=== PATIENT | male | born 1970 | race Caucasian/White ===

== ENCOUNTER → 2017-11-18 | Outpatient (CLI) | payer OTHER ==
[~2017-11-18] MED LIST: CYCLOBENZAPRINE5 M3 PO; HYDROCHLOROTH12.5 M2 PO; HYDROCODONE BIT1 T11 PO; LISINOPRIL20 MG PO; MEDROL DOSEPAK4 MG PO; Motrin,Rufen800 MG PO; NAPROSYN500 MG PO; OMEPRAZOLE20 M2 PO; ROBAXIN500 M1 PO; ZANTAC 150150 MG PO; ZANTAC150 MG PO; ZITHROMAX250 MG PO
== END | disposition home or self-care (01) ==
LOC: RAD 07:24
DX: R06.02 Shortness of breath (principal); R07.89 Other chest pain; F17.200 Nicotine dependence, unspecified, uncomplicated

== ENCOUNTER → 2017-12-15 | Outpatient (CLI) | payer OTHER ==
--- NOTE | ~2017-12-15 | PF ---
[place], [place] PULMONARY FUNCTION TEST NAME: DEL[facility]AGA [id number] UNIT #: [id number] ROOM: DOCTOR: NGHIA KHAN MD,MIRACLE BIRTHDATE: [birth year] DOS: 12/15/2017 The testing was ordered by Maryann Wallace, nurse practitioner. HISTORY: The patient is a 47-year-old male, height of 71 inches, weight of 174 pounds, BMI of 24.3. Reported symptoms of shortness of breath. The patient was also noted with symptoms of nonproductive cough, rare wheezing. Chronic tobacco use noted. Two packs of cigarettes per day for 30 years. SPIROMETRY: The FVC was recorded as 3.49 liters, 66% predicted value, moderately decreased, FEV1 of 2.12 liters, 51% predicted value, moderate to severely decreased. An 18% partial improvement occurred postbronchodilator FEV1, which we will consider clinical significant improvement. Postbronchodilator FEV1/FVC ratio recorded at 66%. Flow volume loop was noted. Finding suggestive of obstructive lung disease with partial reversibility. The lung volume, thoracic gas volume recorded as 114%, residual volume 187%, total lung capacity 97%. RV/TLC ratio 190%. Lung volume suggestive of moderate air trapping secondary to obstructive lung disease. The patient is resistant and passive conductance noted significantly abnormal, partial improvement post-bronchodilator test. Lung diffusion recorded mildly decreased at 70% without correction of carbon monoxide hemoglobin values. FINAL IMPRESSION: Current test was noted with finding consistent with moderate bronchial asthma as well as COPD. Clinical correlation would be advised. MIRACLE AGRAWAL MD CM:PFREPORT:PULMONARY FUNCTION TEST [id number] MIRACLE KHAN MD
== END | disposition home or self-care (01) ==
LOC: CP 08:07
DX: J44.9 Chronic obstructive pulmonary disease, unspecified (principal); R06.02 Shortness of breath; Z72.0 Tobacco use

== ENCOUNTER 2017-12-16 11:02 | Emergency (ER) | payer OTHER ==
[~2017-12-16] VITALS: Ht 180.3 cm; Wt 78.9 kg
[~2017-12-16 11:02] MED LIST changes: -HYDROCHLOROTH12.5 M2 PO; -LISINOPRIL20 MG PO; -NAPROSYN500 MG PO; -OMEPRAZOLE20 M2 PO; -ROBAXIN500 M1 PO; -ZANTAC 150150 MG PO; -ZITHROMAX250 MG PO
[2017-12-16] MEDS ORDERED: NAPROSYN500 MG PO (12:49)
[2017-12-16] MEDS ORDERED: ROBAXIN500 M1 PO (12:49)
[2017-12-16] MEDS ORDERED: MEDROL DOSEPAK4 MG PO (12:49)
== END 2017-12-16 12:53 | disposition home or self-care (01) ==
LOC: ED 11:02
DX: S39.012A Strain of muscle, fascia and tendon of lower back, initial encounter (principal); M79.605 Pain in left leg; F17.200 Nicotine dependence, unspecified, uncomplicated; X50.0XXA Overexertion from strenuous movement or load, initial encounter; Y93.89 Activity, other specified; Y92.69 Other specified industrial and construction area as the place of occurrence of the external cause; Y99.8 Other external cause status

== ENCOUNTER → 2018-01-05 | Outpatient (CLI) | payer OTHER ==
[~2018-01-05] MED LIST changes: +HYDROCHLOROTH12.5 M2 PO; +LISINOPRIL20 MG PO; +NAPROSYN500 MG PO; +OMEPRAZOLE20 M2 PO; +ROBAXIN500 M1 PO; +ZANTAC 150150 MG PO; +ZITHROMAX250 MG PO
== END | disposition home or self-care (01) ==
LOC: MRI 07:41
DX: M48.07 Spinal stenosis, lumbosacral region (principal); S33.5XXD Sprain of ligaments of lumbar spine, subsequent encounter; X58.XXXD Exposure to other specified factors, subsequent encounter

== ENCOUNTER 2018-01-08 10:54 | Emergency (ER) | payer OTHER ==
[~2018-01-08] VITALS: Ht 180.3 cm; Wt 80.3 kg
--- NOTE | ~2018-01-08 | EKG ---
[place], [place] ELECTROCARDIOGRAM REPORT NAME: DELVIN BRAGA III UNIT #: [id number] ROOM: DOCTOR: MANUEL DRAFT REPORT BIRTHDATE: [birth year] [facility] Test Date: 2018-01-08 Test Time: 11:23:00 Pat Name: DELVIN BRAGA Department: Room: Gender: [employer] Worker: : 1970 Requested By: KB GUIDO PA-C Order Number: [id number] Reading MD: Measurements Intervals [place] Rate: 103 P: 66 SD: 168 QRS: 19 QRSD: 81 T: 50 QT: 317 QTc: 415 Interpretive Statements Sinus tachycardia No previous ECG available for comparison CM:EKGRPT:ELECTROCARDIOGRAM REPORT [id number] KB JACKSON DRAFT REPORT KB GUIDO PA-C
[~2018-01-08 10:54] MED LIST changes: -HYDROCHLOROTH12.5 M2 PO; -LISINOPRIL20 MG PO; -OMEPRAZOLE20 M2 PO; -ZANTAC 150150 MG PO; -ZITHROMAX250 MG PO
[2018-01-08 11:31] LABS: BASO % 0.2 % (0.0-1.0); EOS # 0.1 10*3/uL (0.0-0.4); EOS % 1.2 % (1.0-4.0); HEMATOCRIT 37.5 % (42.0-52.0); HEMOGLOBIN 12.8 g/dl (14.0-18.0); LYMPH # 1.4 10*3/uL (1.3-4.4); LYMPH % 12.5 % (27.0-41.0); MEAN CELL VOLUME 92.4 fl (80.0-94.0); MEAN CORPUSCULAR HGB 31.5 pg (27.0-31.0); MEAN CORPUSCULAR HGB CONC 34.1 g/dl (33.0-37.0); MEAN PLATELET VOLUME 8.7 fl (9.6-12.3); MONO % 8.8 % (3.0-9.0); NEUT # 8.3 10*3/uL (2.3-7.9); NEUT % 76.8 % (47.0-73.0); PLATELET COUNT AUTOMATED 255 10*3/uL (130-400); RED BLOOD COUNT 4.06 10*6/uL (4.50-5.90); RED CELL DISTRI WIDTH 13.2 % (0-14.5); WHITE BLOOD COUNT 10.8 10*3/uL (4.8-10.8)
[2018-01-08 11:41] LABS: INTERNATIONAL NORM RATIO 0.9 (2.0-3.5)
[2018-01-08 11:47] LABS: ALBUMIN 3.8 gm/dl (3.1-4.5); ALKALINE PHOSPHATASE 88 U/L (45-117); BUN 15 mg/dl (7-24); CHLORIDE 97 mmol/L (98-107); POTASSIUM 3.6 mmol/L (3.5-5.1); SGOT/AST 22 IU/L (3-35); SGPT/ALT 53 U/L (12-78); SODIUM 131 mmol/L (136-145); TOTAL PROTEIN 7.1 gm/dL (6.4-8.2)
[2018-01-08 11:51] LABS: TROPONIN I < 0.015 ng/ml (<0.045)
[2018-01-08] MEDS ORDERED: HYDROCHLOROTH12.5 M2 PO (11:53)
[2018-01-08] MEDS ORDERED: LISINOPRIL20 MG PO (11:53)
[2018-01-08] MEDS ORDERED: OMEPRAZOLE20 M2 PO (15:38)
[2018-01-08] MEDS ORDERED: ZANTAC 150150 MG PO (15:38)
[2018-01-08] MEDS ORDERED: ZITHROMAX250 MG PO (15:38)
== END 2018-01-08 15:41 | disposition home or self-care (01) ==
LOC: ED 10:54
PROVIDERS: Physician Assistant
DX: J98.9 Respiratory disorder, unspecified (principal); K21.9 Gastro-esophageal reflux disease without esophagitis; R79.1 Abnormal coagulation profile; Z79.899 Other long term (current) drug therapy

== ENCOUNTER → 2020-03-14 | Outpatient (CLI) | payer OTHER ==
[~2020-03-14] MED LIST changes: +HYDROCHLOROTH12.5 M2 PO; +LISINOPRIL20 MG PO; +OMEPRAZOLE20 M2 PO; +ZANTAC 150150 MG PO; +ZITHROMAX250 MG PO
== END | disposition home or self-care (01) ==
LOC: RAD 07:53
PROVIDERS: ATTEND Nurse Practitioner Family
DX: K57.90 Diverticulosis of intestine, part unspecified, without perforation or abscess without bleeding (principal); R14.0 Abdominal distension (gaseous)

== ENCOUNTER → 2020-05-08 | Outpatient (CLI) | payer OTHER ==
[2020-05-08 07:36] LABS: BASO % 0.5 % (0.0-1.0); EOS # 0.1 10*3/uL (0.0-0.4); EOS % 1.5 % (1.0-4.0); HEMATOCRIT 45.3 % (42.0-52.0); LYMPH # 1.4 10*3/uL (1.3-4.4); LYMPH % 21.5 % (27.0-41.0); MEAN CELL VOLUME 91.3 fl (80.0-94.0); MEAN CORPUSCULAR HGB 30.2 pg (27.0-31.0); MEAN CORPUSCULAR HGB CONC 33.1 g/dl (33.0-37.0); MONO # 0.5 10*3/uL (0.1-1.0); MONO % 7.5 % (3.0-9.0); NEUT # 4.5 10*3/uL (2.3-7.9); NEUT % 68.7 % (47.0-73.0); PLATELET COUNT AUTOMATED 285 10*3/uL (130-400); RED BLOOD COUNT 4.96 10*6/uL (4.50-5.90); RED CELL DISTRI WIDTH 12.8 % (0-14.5); WHITE BLOOD COUNT 6.5 10*3/uL (4.8-10.8)
[2020-05-08 08:06] LABS: CHOLESTEROL 181 mg/dL (<200); HDL CHOLESTEROL 54 mg/dl (40-60); LDL CHOLESTEROL 104 mg/dL (9-159); TRIGLYCERIDES 115 mg/dl (<150); VLDL CHOLESTEROL 23 mg/dL (6-40)
== END | disposition home or self-care (01) ==
LOC: LAB 07:15
PROVIDERS: ATTEND Nurse Practitioner Family
DX: I10 Essential (primary) hypertension (principal)

== ENCOUNTER → 2020-10-04 | Outpatient (CLI) | payer OTHER | END | disposition home or self-care (01) | LOC: RAD 09:08 | PROVIDERS: ATTEND Nurse Practitioner Family | DX: J44.9 Chronic obstructive pulmonary disease, unspecified (principal) ==

== ENCOUNTER → 2020-10-09 | Outpatient (CLI) | payer OTHER | LOC: WOUNDCARE 01:38 | PROVIDERS: ATTEND Nurse Practitioner | DX: L02.215 Cutaneous abscess of perineum (principal); I10 Essential (primary) hypertension; K21.9 Gastro-esophageal reflux disease without esophagitis; J44.9 Chronic obstructive pulmonary disease, unspecified; F41.9 Anxiety disorder, unspecified; F17.210 Nicotine dependence, cigarettes, uncomplicated; Z71.6 Tobacco abuse counseling; Z90.49 Acquired absence of other specified parts of digestive tract ==

== ENCOUNTER → 2020-10-16 | Outpatient (CLI) | payer OTHER | LOC: WOUNDCARE 00:41 | PROVIDERS: ATTEND Nurse Practitioner | DX: L02.215 Cutaneous abscess of perineum (principal); I10 Essential (primary) hypertension; K21.9 Gastro-esophageal reflux disease without esophagitis; J44.9 Chronic obstructive pulmonary disease, unspecified; F41.9 Anxiety disorder, unspecified; F17.210 Nicotine dependence, cigarettes, uncomplicated; Z71.6 Tobacco abuse counseling; Z72.89 Other problems related to lifestyle ==

== ENCOUNTER → 2020-10-23 | Outpatient (CLI) | payer OTHER | LOC: WOUNDCARE 01:02 | PROVIDERS: ATTEND Nurse Practitioner | DX: L02.215 Cutaneous abscess of perineum (principal); I10 Essential (primary) hypertension; K21.9 Gastro-esophageal reflux disease without esophagitis; J44.9 Chronic obstructive pulmonary disease, unspecified; F17.210 Nicotine dependence, cigarettes, uncomplicated; F41.9 Anxiety disorder, unspecified; Z71.6 Tobacco abuse counseling; Z72.89 Other problems related to lifestyle ==

== ENCOUNTER → 2020-10-30 | Outpatient (CLI) | payer OTHER | LOC: WOUNDCARE 01:05 | PROVIDERS: ATTEND Nurse Practitioner | DX: L02.215 Cutaneous abscess of perineum (principal); I10 Essential (primary) hypertension; K21.9 Gastro-esophageal reflux disease without esophagitis; J44.9 Chronic obstructive pulmonary disease, unspecified; F17.210 Nicotine dependence, cigarettes, uncomplicated; Z71.6 Tobacco abuse counseling; F41.9 Anxiety disorder, unspecified; Z72.89 Other problems related to lifestyle ==

== ENCOUNTER → 2020-12-06 | Outpatient (CLI) | payer OTHER | END | disposition home or self-care (01) | LOC: RAD 11:24 | PROVIDERS: ATTEND Nurse Practitioner Family | DX: R10.9 Unspecified abdominal pain (principal) ==

== ENCOUNTER → 2020-12-21 | Outpatient (CLI) | payer OTHER | END | disposition home or self-care (01) | LOC: US 10:39 | PROVIDERS: ATTEND Nurse Practitioner Family | DX: K76.0 Fatty (change of) liver, not elsewhere classified (principal); R74.8 Abnormal levels of other serum enzymes; R74.01 Elevation of levels of liver transaminase levels ==

== ENCOUNTER 2023-10-29 14:06 | Emergency (ER) | payer OTHER ==
[~2023-10-29] VITALS: Wt 95.3 kg
[2023-10-29] MEDS ORDERED: ATORVASTATIN CA10 M1 PO (14:20)
[2023-10-29] MEDS ORDERED: FLUTICASONE-SA1 EAC4 INH (14:20)
[2023-10-29] MEDS ORDERED: OMEPRAZOLE40 MG PO (14:21)
[2023-10-29] MEDS ORDERED: IOHEXOL 350 MG/ML 100 ML VIAL IV ONE (14:40)
[2023-10-29] MEDS ORDERED: SODIUM CHLORIDE 0.9% 100 ML BAG IV ONE (14:40)
[2023-10-29 14:48] LABS: BASO % 0.3 % (0.0-1.0); EOS # 0.1 10*3/uL (0.0-0.4); EOS % 0.9 % (1.0-4.0); HEMATOCRIT 45.2 % (42.0-52.0); LYMPH # 1.5 10*3/uL (1.3-4.4); LYMPH % 23.1 % (27.0-41.0); MEAN CELL VOLUME 91.9 fl (80.0-94.0); MEAN CORPUSCULAR HGB 30.1 pg (27.0-31.0); MEAN CORPUSCULAR HGB CONC 32.7 g/dl (33.0-37.0); MEAN PLATELET VOLUME 8.9 fl (9.6-12.3); MONO # 0.5 10*3/uL (0.1-1.0); MONO % 7.6 % (3.0-9.0); NEUT # 4.4 10*3/uL (2.3-7.9); NEUT % 67.9 % (47.0-73.0); PLATELET COUNT AUTOMATED 252 10*3/uL (130-400); RED BLOOD COUNT 4.92 10*6/uL (4.50-5.90); RED CELL DISTRI WIDTH 12.8 % (0-14.5); WHITE BLOOD COUNT 6.4 10*3/uL (4.8-10.8)
[2023-10-29 14:59] LABS: ACT PARTIAL THROMBO TIME 27.3 SECONDS (20.0-32.1)
[2023-10-29 15:04] LABS: ALKALINE PHOSPHATASE 127 U/L (46-116); BUN 11 mg/dl (9-23); CHLORIDE 102 mmol/L (98-107); POTASSIUM 3.3 mmol/L (3.4-5.1); SGPT/ALT 94 U/L (5-49); TOTAL PROTEIN 7.4 gm/dL (6.0-8.0)
[2023-10-29] MEDS ORDERED: GADOTERATE MEGLUMINE 10 MMOL/20 ML VIAL IV ONE (15:43)
[2023-10-29] MEDS ORDERED: ARTIFICIAL TEAR1514 OP (17:46)
[2023-10-29] MEDS ORDERED: PREDNISONE20 M1 PO (17:46)
[2023-10-29] MEDS ORDERED: ARTIFICIAL EYE3.5 GM OP (17:46)
[2023-10-29] MEDS ORDERED: VALTREX1000 MG PO (17:46)
== END 2023-10-29 17:47 | disposition home or self-care (01) ==
LOC: ED 14:06
PROVIDERS: Emergency Medicine
DX: G51.0 Bell's palsy (principal); G51.9 Disorder of facial nerve, unspecified; I10 Essential (primary) hypertension